=== PATIENT | female | born 1935 | race Caucasian/White ===

== ENCOUNTER 2025-01-03 08:50 | Inpatient (IN) ==
[2025-01-03] MEDS ORDERED: CLARITIN PO PRN ×2 (10:11)
[2025-01-03] MEDS ORDERED: LASIX PO PRN (10:11)
[2025-01-03] MEDS ORDERED: PROVENTIL NEB TX 0.083% 2.5MG/ 3ML IN SCH (10:11)
[2025-01-03] MEDS: PROVENTIL NEB TX 0.083% 2.5MG/ 3ML NEB SCH (14:07)
[2025-01-03 14:49] VITALS: BMI 18.1
[2025-01-04] MEDS ORDERED: MULTIVITAMIN MINERALS LUTEIN PO SCH (09:00)
[2025-01-04] MEDS ORDERED: VITAMIN B12 FOLIC ACID PO SCH (09:00)
--- NOTE | 2025-01-04 09:38 | DR.H&P ---
H&P History & Physical for Day of: H&P Date: 01/04/25 Chief Complaint Chief Complaint: respite care/COPD History of Present Illness History of Present Illness: Patient admitted for 5 days of respite care on hospice services. She is on hospice due to end-stage COPD and moderate dementia. Currently denies any complaints this morning. Admitted yesterday and nurses deny any overnight events. No labs being drawn. Vitals overall stable. PMH: Dementia, CAD, COPD, depression. ROS: 12 point ROS negative except as noted in HPI. History is limited by patient's dementia and lack of detailed medical records. No guarding or room service clerk at bedside. PE: Thin, elderly female in no acute distress. Head NCAT. EOMI. Hearing intact conversation. Heart regular rate and rhythm. Lungs diminished but clear on the back. Anterior right with rhonchi. Bowel sounds are present and belly is soft and nontender. She is alert and oriented to person but not place or time. Past Surgical History Surgical History: Angioplasty/Stents, Hysterectomy and Other Family History Family Medical History: Cancer Social History Does patient currently use any type of tobacco product: No Type of Tobacco Use: None Alcohol Use: None Drug Use: None Medications Home Medications: Home Medications Medication Instructions Recorded Confirmed Type albuterol sulfate 2.5 mg/3 mL 2.5 mg inhalation Q6H 01/03/25 01/03/25 History (0.083 %) solution for nebulization donepezil 5 mg tablet 5 mg PO QDAY 01/03/25 01/03/25 History escitalopram oxalate 5 mg tablet 5 mg PO QDAY 01/03/25 01/03/25 History (Lexapro) furosemide 20 mg tablet 20 mg PO QDAY PRN swelling 01/03/25 01/03/25 History loratadine 10 mg tablet (Claritin) 10 mg PO QDAY PRN Allergy Symptoms 01/03/25 01/03/25 History [id number] 1 tab PO DAILY 01/03/25 01/03/25 History tablet (Multivitamin 50 Plus tablet) rivaroxaban 15 mg tablet (Xarelto) 15 mg PO QDAY 01/03/25 01/03/25 History vitamin B12 0.5 mg-folic acid 1 mg 1 tab PO QDAY 01/03/25 01/03/25 History tablet (Foltrate) Allergies Allergies Allergy/AdvReac Type Severity Reaction Status Date / Time No Known Drug Allergies Allergy Verified 01/03/25 10:07 [NKDA] Physical Exam Vital Signs: Vital Signs Temperature 98.0 F Assessment/Plan (1) Severe chronic obstructive pulmonary disease: Narrative Support Text: Continue home meds. Continue current care but hospice is providing. Respite care for 5 days Status: Acute (2) Chronic hypoxemic respiratory failure: Status: Acute (3) Moderate dementia without behavioral disturbance: Status: Acute (4) Major depressive disorder in full remission: Qualifiers: Major depression recurrence: recurrent Qualified Code(s): F33.42 - Major depressive disorder, recurrent, in full remission Status: Acute (5) CAD (coronary artery disease): Qualifiers: Coronary Disease-Associated Artery/Lesion type: [place] artery [place] vs. transplanted heart: [place] heart Associated angina: without angina Qualified Code(s): I25.10 - Atherosclerotic heart disease of [place] coronary artery without angina pectoris Status: Acute (6) Hospice care patient: Status: Acute
[2025-01-04] MEDS ORDERED: LEXAPRO ONE (10:30)
[2025-01-04] MEDS: XARELTO PO SCH (10:34)
[2025-01-04] MEDS: ARICEPT TAB 5 MG PO SCH (10:34)
[2025-01-04] MEDS: LEXAPRO PO SCH (10:34)
[2025-01-04] MEDS: TAB-A-VITE PO SCH (10:35)
[2025-01-05] MEDS: LEXAPRO ONE (14:34)
[2025-01-06] MEDS: ARTIFICIAL TEARS DROPS AFFEYE PRN (10:30)
[2025-01-06] MEDS: LEXAPRO ONE (11:41)
[2025-01-07 07:54] VITALS: BP 151/72; PULSE 70; TEMP 98.7; O2SAT 96
--- NOTE | 2025-01-07 08:33 | NOTE.SOAP ---
Soap Note Note for Day of Date of Exam: 01/07/25 Subjective Data Subjective Data: Patient seen for morning rounds. No weekend events. Day 4 for respite care. Patient denies complaints today other than poor sleep. Objective Data Objective Data: Thin, elderly female in no acute distress. Heart regular rate and rhythm. Lungs diminished but clear today. Bowel sounds are present. Mood and affect are appropriate. Currently eating breakfast. Assessment Assessment: 1. End-stage COPD. Continue hospice care. 2. Mild-moderate dementia, senile. Continue supportive care. 3. History of VTE, chronic. Continue Xarelto use.
[2025-01-07] MEDS: TYLENOL 325 MG TAB PO PRN (09:27)
[2025-01-07] MEDS: LEXAPRO ONE (09:28)
[2025-01-07 11:19] VITALS: RESP 19
== END 2025-01-07 14:30 | disposition hospice, home (50) | DRG 189 ==
LOC: ICU 09:13 → MED/SURG 01-06 15:04
PROVIDERS: ADMIT Family Medicine; ATTEND Family Medicine
DX: Z51.5 Encounter for palliative care; I10 Essential (primary) hypertension; F33.42 Major depressive disorder, recurrent, in full remission; Z86.718 Personal history of other venous thrombosis and embolism; J96.21 Acute and chronic respiratory failure with hypoxia; E78.5 Hyperlipidemia, unspecified; F03.B18 Unspecified dementia, moderate, with other behavioral disturbance; J44.89 Other specified chronic obstructive pulmonary disease; I25.10 Atherosclerotic heart disease of native coronary artery without angina pectoris